=== PATIENT | male | born 1995 | race African-American/Black ===

== ENCOUNTER 2017-05-09 20:57 | Emergency (ER) | payer SELFPAY ==
[2017-05-09 21:21] VITALS: BMI 23.1
[2017-05-09] MEDS ORDERED: ASPIRIN 81 MG CHEWABLE TABLETS PO ONE (21:41)
--- NOTE | 2017-05-09 21:50 | PDOC ---
History of Present Illness - General History Source: Patient Exam Limitations: No Limitations - History of Present Illness Initial Comments: 05/09/17 22:11 Patient is a 21 year old male with a pmhx of bipolar disorder who presents to the ED with chest pain and right leg pain and numbness. Patient is a resident at [facility] and presents to the ED alone and as per EMS patient was found on the street alone. Patients initial complaint was chest pain that he states has resolved on its own. He now states that he fell and is now experiencing pain and numbness and presents to obtain support for his right leg and crutches. Patient is a poor historian. Patient's does know his medical hx but has poor insight He states that he is on this medication: Risperidone zyprexa and lithium <Vilma Yu - Last Filed: 05/10/17 00:23> <Denise Hernandez - Last Filed: 05/10/17 01:33> - General Chief Complaint: Chest Pain Stated Complaint: CHEST PAIN Time Seen by Provider: 05/09/17 21:35 Past History <Vilma Yu - Last Filed: 05/10/17 00:23> - Psycho/Social/Smoking Cessation Hx Suicidal Ideation: No Smoking History: Current some day smoker Number of Cigarettes Smoked Daily: 2 Information on smoking cessation initiated: No Hx Alcohol Use: No Drug/Substance Use Hx: No <Denise Hernandez - Last Filed: 05/10/17 01:33> - Past Medical History Allergies/Adverse Reactions: Allergies Allergy/AdvReac Type Severity Reaction Status Date / Time diphenhydramine HCl Allergy Itching Verified 05/09/17 21:23 [From Benadryl] haloperidol [From Haldol] Allergy Swelling Verified 05/09/17 21:22 haloperidol lactate Allergy Verified 05/09/17 21:23 [From Haldol] Home Medications: Ambulatory Orders [place] 0 mg PO DAILY 05/09/17 Risperidone 0 mg PO DAILY 05/09/17 Zyprexa 0 mg PO DAILY 05/09/17 Review of Systems - Review of Systems Able to Perform ROS?: Yes Comments:: 05/09/17 22:11 CONSTITUTIONAL: Absent: fever, chills, diaphoresis, generalized weakness, malaise, loss of appetite HEENT: Absent: rhinorrhea, nasal congestion, throat pain, throat swelling, difficulty swallowing, mouth swelling, ear pain, eye pain, visual Changes CARDIOVASCULAR: Absent: chest pain, syncope, palpitations, irregular heart rate, lightheadedness , peripheral edema RESPIRATORY: Absent: cough, shortness of breath, dyspnea with exertion, orthopnea, wheezing, stridor, hemoptysis GASTROINTESTINAL: Absent: abdominal pain, abdominal distension, nausea, vomiting, diarrhea, constipation, melena, hematochezia GENITOURINARY: Absent: dysuria, frequency, urgency, hesitancy, hematuria, flank pain, genital pain MUSCULOSKELETAL: Present: right leg pain and numbness Absent:joint swelling SKIN: Absent: rash, itching, pallor HEMATOLOGIC/IMMUNOLOGIC: Absent: easy bleeding, easy bruising, lymphadenopathy, frequent infections ENDOCRINE: Absent: unexplained weight gain, unexplained weight loss, heat intolerance, cold intolerance NEUROLOGIC: Absent: headache, focal weakness or paresthesias, dizziness, unsteady gait, seizure, mental status changes, bladder or bowel incontinence <Vilma Yu - Last Filed: 05/10/17 00:23> *Physical Exam - Vital Signs Last Vital Signs Temp Pulse Resp BP Pulse Ox 98.1 F 95 H 18 122/87 100 05/09/17 21:10 05/09/17 21:10 05/09/17 21:10 05/09/17 21:10 05/09/17 21:10 - Physical Exam Comments: 05/09/17 22:17 GENERAL: (+)Tall and thin. Awake and alert. No acute distress. HEENT: No head trauma. No facial bruising or swelling. Normocephalic, atraumatic. PERRLA, EOMI. No conjunctival pallor. Sclera are non-icteric. Moist mucous membranes. Oropharynx is clear. NECK: Supple. Full ROM. No JVD. Carotid pulses 2+ and symmetric, without bruits. No thyromegaly. No lymphadenopathy. CARDIOVASCULAR: Regular rate and rhythm. No murmurs, rubs, or gallops. Distal pulses are 2+ and symmetric. PULMONARY: No evidence of respiratory distress. Lungs clear to auscultation bilaterally. No wheezing, rales or rhonchi. ABDOMINAL: Soft. Non-tender. Non-distended. No rebound or guarding. No organomegaly. Normoactive bowel sounds. MUSCULOSKELETAL Normal range of motion at all joints. No bony deformities or tenderness. No CVA tenderness. EXTREMITIES: (+)Right leg raising pain however ambulates no obvious deformity no bruising able to bear weight. No cyanosis. No clubbing. No edema. No calf tenderness. SKIN: Warm and dry. Normal capillary refill. No rashes. No jaundice. NEUROLOGICAL: (+)Appears to have chronic cognitive deficits alert and moving all extremities except right leg. PSYCHIATRIC: (+)Flat affect. <Vilma Yu - Last Filed: 05/10/17 00:23> - Vital Signs Last Vital Signs Temp Pulse Resp BP Pulse Ox 98.1 F 95 H 18 122/87 100 05/09/17 21:10 05/09/17 21:10 05/09/17 21:10 05/09/17 21:10 05/09/17 21:10 <Denise Hernandez - Last Filed: 05/10/17 01:33> ED Treatment Course - LABORATORY CBC & Chemistry Diagram: 05/09/17 22:20 05/09/17 22:20 - Medications Given in the ED: ED Medications Discontinued Medications Generic Name Dose Route Start Last Admin Trade Name Freq PRN Reason Stop Dose Admin Aspirin 162 mg 05/09/17 21:41 05/09/17 21:48 Asa - PO 05/09/17 21:42 162 mg ONCE ONE Administration <Vilma Yu - Last Filed: 05/10/17 00:23> - LABORATORY CBC & Chemistry Diagram: 05/09/17 22:20 05/09/17 22:20 <Denise Hernandez - Last Filed: 05/10/17 01:33> *DC/Admit/Observation/Transfer - Attestations Scribe Attestion: 05/09/17 22:13 Documentation prepared by SHAYAN Hassan, acting as medical anthropology director for Denise Hernandez MD. <Vilma Yu - Last Filed: 05/10/17 00:23> <Denise Hernandez - Last Filed: 05/10/17 01:33> Diagnosis at time of Disposition: Pain of right lower extremity, Atypical chest pain Knee pain Qualifiers: Chronicity: acute Laterality: right Qualified Code(s): M25.561 - Pain in right knee - Discharge Dispostion Disposition: HOME Condition at time of disposition: Stable - Patient Instructions Printed Discharge Instructions: DI for Knee Pain, DI for Atypical Chest Pain Additional Instructions: your glucose was elevated to 166 and this needs to be followed by your doctor Take tylenol for your knee pain
[2017-05-09] MEDS ORDERED: ASPIRIN 81 MG CHEWABLE TABLETS ONE (21:54)
[2017-05-09 22:30] LABS: BASOPHIL 0.5 % (0-2.0); EOSINOPHIL 3.3 % (0-4.5); MCH 26.9 pg (25.7-33.7); MCHC 32.4 g/dl (32.0-35.9); MEAN CELL VOLUME 82.9 fl (80-96); MEAN PLT VOLUME 8.7 fl (7.5-11.1); NEUTROPHILS 54.3 % (42.8-82.8); PLATELET COUNT 221 K/MM3 (134-434); RDW 14.6 % (11.9-15.9); WHITE BLOOD COUNT 6.1 K/mm3 (4.0-10.0)
[2017-05-09 22:37] LABS: INR 0.97 (0.82-1.09); PROTHROMBIN TIME (PATIENT) 10.7 SEC (9.98-11.88)
[2017-05-09 23:08] LABS: ANION GAP 7 (8-16); BILIRUBIN,TOTAL 0.2 mg/dL (0.2-1.0); CALCIUM 8.9 mg/dL (8.5-10.1); CO2 24 mmol/L (21-32); GLUCOSE,RANDOM 166 mg/dL (74-106); MAGNESIUM 1.7 mg/dL (1.8-2.4); SGOT/AST 13 U/L (15-37); SGPT/ALT 25 U/L (12-78); TOT PROT 7.5 g/dl (6.4-8.2)
[2017-05-09 23:21] LABS: ALK PHOS 83 U/L (45-117); CPK 299 IU/L (39-308); TROPONIN I < 0.02 ng/ml (0.00-0.05)
[2017-05-10 00:10] LABS: URINE MARIJUANA THC NEGATIVE ng/ml (CUTOFF=50)
[2017-05-10] MEDS ORDERED: ACETAMINOPHEN 325 MG TABLET (FP) PO ONE (00:19)
[2017-05-10] MEDS ORDERED: ACETAMINOPHEN 325 MG TABLET (FP) ONE (00:20)
[2017-05-10 03:18] VITALS: BP 101/65; PULSE 71; TEMP 97.9
--- NOTE | 2017-05-10 13:36 | EKG ---
Test Reason : Blood Pressure : / mmHG Vent. Rate : 090 BPM Atrial Rate : 090 BPM P-R Int : 194 ms QRS Dur : 100 ms QT Int : 354 ms P-R-T Axes : 078 025 019 degrees QTc Int : 433 ms NORMAL SINUS RHYTHM POSSIBLE LEFT ATRIAL ENLARGEMENT ST SEGEMENT ABNORMALITY, POSSIBLE EARLY REPOLARIZATION CHANGES ABNORMAL ECG NO PREVIOUS ECGS AVAILABLE Confirmed by CELIA MACKEY MD ([id number]) on 05/10/2017 1:35:39 PM Referred By: Confirmed By:CELIA MACKEY MD
== END 2017-05-10 06:35 | disposition home or self-care (01) ==
LOC: JER 20:57
DX: M79.604 Pain in right leg (principal); M25.561 Pain in right knee; F31.9 Bipolar disorder, unspecified; F17.210 Nicotine dependence, cigarettes, uncomplicated
CPT/HCPCS: 36415; 71020-TC; 73502-TC-RT; 73562-TC-LT; 80053; 80178; 80307; 82553; 83735; 84484; 85025; 85610; 93005; 93010; 99282-25